=== PATIENT | female | born 1985 | race American Indian/Alaskan Native ===

== ENCOUNTER 2017-11-07 14:27 | Emergency (ER) | payer MEDICAID, OTHER ==
[2017-11-07 15:12] VITALS: BP 122/75
[2017-11-07 15:47] LABS: HCG Qualitative,Urine Negative (Negative)
[2017-11-07 15:49] LABS: Bilirubin,Urine NEG (Negative); Blood,Urine NEG (Negative); Color,Urine Yellow (Yellow); Mucus,Urine 3+ /HPF; Protein,Urine <15 mg/dL mg/dL (Negative)
--- NOTE | 2017-11-07 17:43 | Emergency Department Report ---
ED Headache HPI - General Chief Complaint: Headache Stated Complaint: DIZZINESS,HEADACHE, FATIGUE Time Seen by Provider: 11/07/17 17:26 Source: patient - History of Present Illness Initial Comments: Ms. Young is a healthy 32-year-old female who is bitemporal headache for the last 3 days. She has fatigue. Nausea. She just feels out of sorts. Denies any neck stiffness. No fever. No nasal congestion. Gradual onset of symptoms. Mild relief with Tylenol. Timing/Duration: other (3 days) Quality: moderate Associated Symptoms: nausea/vomiting Allergies/Adverse Reactions: Allergies No Known Allergies Allergy (Verified 07/23/13 11:28) Home Medications: Ambulatory Orders Vits96/Iron Fum/Folic [ Tablet] 1 each PO QDAY 10/13/13 Butalb/Acetamin/Caff 50-325-40 [Fioricet] 1 tab PO Q6HR PRN #10 tab 11/07/17 Promethazine [Phenergan TAB] 25 mg PO Q6HR PRN #10 tab 11/07/17 ED Review of Systems ROS: Stated complaint: DIZZINESS,HEADACHE, FATIGUE Other details as noted in HPI Comment: All other systems reviewed and negative Constitutional: malaise. denies: diaphoresis, fever ENT: denies: ear pain, throat pain Respiratory: denies: cough Cardiovascular: denies: chest pain ED Past Medical Hx - Past Medical History Previous Medical History?: Yes Hx Hypertension: No Hx Heart Attack/AMI: No Hx Congestive Heart Failure: No Hx Diabetes: No Hx Pulmonary Embolism: No Hx Liver Disease: No Hx Renal Disease: No Hx Headaches / Migraines: No Hx Seizures: No Hx Asthma: No Hx COPD: No Hx Tuberculosis: No Hx HIV: No Additional medical history: Vaginal delivery x 4 - Surgical History Past Surgical History?: Yes Additional Surgical History: IUD 2013 - Social History Smoking Status: Never Smoker Substance Use Type: None - Medications Home Medications: Home Medications Medication Instructions Recorded Confirmed Last Taken Type Vits96/Iron Fum/Folic 1 each PO QDAY 10/13/13 10/13/13 10/11/13 History [ Tablet] Butalb/Acetamin/Caff 50-325-40 1 tab PO Q6HR PRN #10 tab 11/07/17 Unknown Rx [Fioricet] Promethazine [Phenergan TAB] 25 mg PO Q6HR PRN #10 tab 11/07/17 Unknown Rx ED Physical Exam - General Limitations: No Limitations General appearance: alert, in no apparent distress - Head Head exam: Present: atraumatic, normocephalic - Eye Eye exam: Present: normal appearance - ENT ENT exam: Present: mucous membranes moist - Neck Neck exam: Present: normal inspection - Respiratory Respiratory exam: Present: normal lung sounds bilaterally. Absent: respiratory distress, wheezes, rales, rhonchi - Cardiovascular Cardiovascular Exam: Present: regular rate, normal rhythm, normal heart sounds. Absent: bradycardia, tachycardia, systolic murmur, diastolic murmur, rubs, gallop - GI/Abdominal GI/Abdominal exam: Present: soft, normal bowel sounds. Absent: distended, tenderness, guarding - Extremities Exam Extremities exam: Present: normal inspection - Back Exam Back exam: Present: normal inspection - Neurological Exam Neurological exam: Present: alert, oriented X3, CN II-XII intact, normal gait - Psychiatric Psychiatric exam: Present: normal affect, normal mood - Skin Skin exam: Present: warm, dry, intact, normal color. Absent: rash ED Course Vital Signs 11/07/17 15:08 Temperature 98.8 F Pulse Rate 61 Respiratory 18 Rate Blood Pressure 122/75 O2 Sat by Pulse 98 Oximetry ED Medical Decision Making - Medical Decision Making Ms. Borrego is a 2-year-old female who presents with bilateral temporal headache. Suspect tension headache possible early viral syndrome. Prescribed Fioricet and promethazine. Critical care attestation.: If time is entered above; I have spent that time in minutes in the direct care of this critically ill patient, excluding procedure time. ED Disposition Clinical Impression: Tension headache Disposition: DC-01 TO HOME OR SELFCARE Is pt being admited?: No Does the pt Need Aspirin: No Condition: Stable Instructions: Tension Headache (ED), Acute Headache (ED) Prescriptions: Butalb/Acetamin/Caff 50-325-40 [Fioricet] 1 tab PO Q6HR PRN #10 tab PRN Reason: Headache Promethazine [Phenergan TAB] 25 mg PO Q6HR PRN #10 tab PRN Reason: Nausea Referrals: [facility] [Outside] - 3-5 Days Time of Disposition: 17:43
== END 2017-11-07 17:48 | disposition home or self-care (01) ==
LOC: ED 14:27
DX: R51 Headache (principal); R42 Dizziness and giddiness; R11.2 Nausea with vomiting, unspecified
CPT/HCPCS: 81001; 81025; 99283